=== PATIENT | male | born 1980 | race Caucasian/White ===

== ENCOUNTER 2019-03-06 05:38 | Day surgery (SDC) | payer MEDICAID, SELFPAY ==
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
[2019-03-06] VITALS (9 sets, daily range): BP systolic 100–119; BP diastolic 57–74; PULSE 74–100; RESP 16–18; TEMP 36.1–36.6; O2SAT 95–100; BMI 22.1
--- NOTE | 2019-03-06 07:15 | HERN_PTH ---
PATIENT: JASWANT ABDUL LOC: [facility] U#:[id number] AGE/SX: 38/M ROOM: RE03/06/[address]: Dr. Alvarado Rodriguez MD : 1980 BED: DIS: 03/06/2019 SPEC #: [id number] RECD: 03/06/19 15:03 STATUS: NOLAN GRAY #: [id number] PAT: 03/06/19 07:[address]: Alvarado Rodriguez DEPT: SURGICAL PATHOLOGY RECD BY: Shiva Srivastava ENTERED: 03/07/19 08:04 SP TYPE: Hernia OTHR DR: No Primary Care Phys Tissues: HERNIA Procedures: Surgery Specimen Level II HEADER OPERATION: Right inguinal hernia with mesh PRE-OP DIAGNOSIS: Right inguinal hernia TISSUE SUBMITTED: Hernia sac and lipoma of cord MICROSCOPIC DIAGNOSIS Hernia sac and lipoma of cord: Mesothelium-lined fibroadipose tissue consistent with hernia sac. Mature adipose tissue, compatible with cord lipoma. CE:demetrio 03/08/19 MICROSCOPIC DESCRIPTION Slides are reviewed. GROSS DESCRIPTION Received in fixative is one container labeled with the patient's name and designated hernia sac and lipoma of cord. The specimen consists of an irregular fragment of saccular dupree tissue measuring 3.8 x 2 x 1 cm and consistent with hernia sac. This fragment is sectioned and submitted in its entirety in cassette 1. Also present in the specimen container is an irregular fragment of yellow fatty tissue measuring 8.5 x 4.5 x 1.3 cm. Serial sections reveal homogenous yellow cut surfaces without areas of cyst formation, necrosis or myxoid change. This fragment is consistent with lipoma of cord. Lpn Or Medical Assistant sections from this fragment is submitted in cassette 2. / AM:demetrio 03/07/19 TC:1 CPT: 60596
--- NOTE | 2019-03-06 07:16 | DCINST_ITS ---
Discharge Diet: Light diet - advance as tolerated Discharge Activity: Return to Normal Activity, May Drive - when you are no longer taking narcotic pain medications., May Shower - with the bandage in place 1-2 days after surgery. Lifting Restrictions: 20 pounds for 8 weeks. Additional Activity Instructions:: Climbing stairs is fine, walking is encouraged. Sitting in bed may be uncomfortable. Sitting up using your lateral muscles (sitting up sideways) is usually more comfortable. Do not drive, work heavy equipment of sign legal documents for 24 hours. If your hernia repair was an ingunial repair, you may have scrotal swelling, an ice pack and/or athletic support can provide more comfort. Pain medications may cause nausea, you should typically eat light foods as you take your pain medications. Pain medications may also cause constipation. If you have difficulty with this, discuss with your doctor. Call your doctor if your incision/area has: Continuous Slow Oozing, Sudden Increased Bleeding, Increased Pain/ Swelling, Increased Redness, Foul Smelling Discharge Call your doctor if you observe: Fever of 101 or Higher Suture Line Care: Avoid Pulling/Pushing, Avoid Pinching/Bending Additional Dressing/Incision Instructions:: Leave the operative bandage on for 2-3 days. When you remove the bandage, leave the steri-strips on place until your follow up appointment or they fall off. Allergies/Adverse Reactions: Allergies acetaminophen [From Vicodin] Adverse Reaction (Verified 03/01/19 10:52) Nausea/Vom/Diarrhea codeine Adverse Reaction (Verified 03/01/19 10:52) Nausea/Vom/Diarrhea hydrocodone [From Vicodin] Adverse Reaction (Verified 03/01/19 10:52) Nausea/Vom/Diarrhea Medications to take at Discharge Cetirizine HCl [Zyrtec] 10 mg PO PRN PRN 03/01/19 Primary Care Physician: Care Physician,No Primary [Primary Care Provider] - Test Results: Test results from this visit will be discussed in further detail at your follow- up appointment, if applicable. Please Follow Up With: Alvarado Rodriguez MD - [phone] When: Plan to have a follow up appointment in 7 days. Call to schedule.
[2019-03-06] MEDS: Cefazolin 2 GM in 0.9% Normal Saline 100 ML IV (07:18)
[2019-03-06] MEDS: Bupivacaine Mpf 0.5% 30 ML VIAL (08:25)
--- NOTE | 2019-03-06 08:31 | PCM.OPRPT ---
Report of Operation Date of Procedure: 03/06/19 Pre-Operative Diagnosis: right inguinal hernia repair Post-Operative Diagnosis: indirect right inguinal hernia Surgery/Procedure Performed:: open right inguinal hernia repair with mesh heavy equipment technician: Tracy Quintero Type of Anesthesia:: Local MAC Anesthesiologist: Jose Alfredo Cisneros - ASA2 Specimen's removed: hernia sac and cord lipoma Estimated Blood Loss (mL): 5 Fluids Replaced: 600 Description of Procedure: The patient was brought to the operating suite. Sign in was performed verifying patient, site, procedure, position, and DVT prophylaxis with SCDs. Patient received 2 g Ancef antibiotic prophylaxis. Following induction of IV sedation, the patient?s right inguinal region was prepped and draped in the usual fashion. Timeout was performed verifying patient, site, position. Local anesthetic was injected at the site of the anterior superior iliac spine for a regional block. The 50-50 mixture of lidocaine and Marcaine was then injected along the planned course of the skin incision. A linear incision was made and dissection carried down to the external oblique aponeurosis. Traversing veins ligated with 3-0 Vicryl ties and divided. Local anesthetic was then injected into the inguinal canal. A clean scalpel blade was used to open the lower canal in the direction of the fibers and a Metzenbaum scissor was used to further dissect and open the canal. Care was taken to avoid injury to the ilioinguinal nerve. Following this, the spermatic cord was surrounded at the level of the pubic tubercle and brought up in the operative field with a [place] drain. Dissection was continued up to the internal ring clearing the cremasteric fibers. The patient was noted to have an indirect inguinal hernia. Dissection of the cord was undertaken which demonstrated no additional direct inguinal hernia. the hernia sac was dissected off the cord. The hernia sac was opened and was no sliding component. High ligation of the cord was performed. A small mesh plug was then placed into the internal ring and secured with interrupted 0 Prolene sutures. Onlay mesh was secured using a Bard keyhole shaped mesh secured at the level of the pubic tubercle and run to the ilioinguinal ligament inferiorly using an 0 Prolene suture. Next an 0 Prolene suture was used to secure the mesh to the transversus arch. The tails of the mesh were placed around the spermatic cord to create a new internal ring and the tails closed with a running 0 Prolene suture. The spermatic cord and the ilioinguinal nerve returned to its anatomic position. The external oblique was closed with a running 3-0 Vicryl suture. Subcutaneous fat was closed with interrupted 3-0 Vicryl suture. Skin was closed with a running 4-0 Monocryl subcuticular sutures. Steri-Strips and bandages were applied. The patient was brought to recovery room in stable condition. Grafts/Implants Used: Bard perfix plug Ref [id number] Lot [id number] exp - 11/15/27 - Admit VTE Documentation VTE Present on Admission: No VTE Mechan Device Prophylaxis: SCD's VTE Pharm Prophylaxis ordered?: No
--- NOTE | 2019-03-06 08:35 | OP.PCM_ITS ---
Report of Operation Date of Procedure: 03/06/19 Pre-Operative Diagnosis: right inguinal hernia repair Post-Operative Diagnosis: indirect right inguinal hernia Surgery/Procedure Performed:: open right inguinal hernia repair with mesh manager project management: Tracy Quintero Type of Anesthesia:: Local MAC Anesthesiologist: Jose Alfredo Cisneros - ASA2 Specimen's removed: hernia sac and cord lipoma Estimated Blood Loss (mL): 5 Fluids Replaced: 600 Description of Procedure: The patient was brought to the operating suite. Sign in was performed verifying patient, site, procedure, position, and DVT prophylaxis with SCDs. Patient received 2 g Ancef antibiotic prophylaxis. Following induction of IV sedation, the patient?s right inguinal region was prepped and draped in the usual fashion. Timeout was performed verifying patient, site, position. Local anesthetic was injected at the site of the anterior superior iliac spine for a regional block. The 50-50 mixture of lidocaine and Marcaine was then injected along the planned course of the skin incision. A linear incision was made and dissection carried down to the external oblique aponeurosis. Traversing veins ligated with 3-0 Vicryl ties and divided. Local anesthetic was then injected into the inguinal canal. A clean scalpel blade was used to open the lower canal in the direction of the fibers and a Metzenbaum scissor was used to further dissect and open the canal. Care was taken to avoid injury to the ilioinguinal nerve. Following this, the spermatic cord was surrounded at the level of the pubic tubercle and brought up in the operative field with a [place] drain. Dissection was continued up to the internal ring clearing the cremasteric fibers. The patient was noted to have an indirect inguinal hernia. Dissection of the cord was undertaken which demonstrated no additional direct inguinal hernia. the hernia sac was dissected off the cord. The hernia sac was opened and was no sliding component. High ligation of the cord was performed. A small mesh plug was then placed into the internal ring and secured with interrupted 0 Prolene s utures. Onlay mesh was secured using a Bard keyhole shaped mesh secured at the level of the pubic tubercle and run to the ilioinguinal ligament inferiorly using an 0 Prolene suture. Next an 0 Prolene suture was used to secure the mesh to the transversus arch. The tails of the mesh were placed around the spermatic cord to create a new internal ring and the tails closed with a running 0 Prolene suture. The spermatic cord and the ilioinguinal nerve returned to its anatomic position. The external oblique was closed with a running 3-0 Vicryl suture. Subcutaneous fat was closed with interrupted 3-0 Vicryl suture. Skin was closed with a running 4-0 Monocryl subcuticular sutures. Steri-Strips and bandages were applied. The patient was brought to recovery room in stable condition. Grafts/Implants Used: Bard perfix plug Ref [id number] Lot [id number] exp - 11/15/27 - Admit VTE Documentation VTE Present on Admission: No VTE Mechan Device Prophylaxis: SCD's VTE Pharm Prophylaxis ordered?: No
== END 2019-03-06 12:49 | disposition home or self-care (01) ==
LOC: SDC 05:41 → AC 05:42
PROVIDERS: Referring Provider Surgery; Visit Provider Surgery
PROC: (CPT 49505; principal; 2019-03-06 07:00)
DX: K40.90 Unilateral inguinal hernia, without obstruction or gangrene, not specified as recurrent (principal)
CPT/HCPCS: 49505; 88302; J7120; C1781; J2405

== ENCOUNTER 2019-06-09 11:42 | Emergency (ER) | payer MEDICAID, SELFPAY ==
[2019-03-06 06:15] VITALS: BMI 22.1
[2019-06-09 11:43] VITALS: BP 139/71; PULSE 99; RESP 17; TEMP 36.6; O2SAT 98; BMI 21.1
--- NOTE | 2019-06-09 12:39 | ED.VISSUMM ---
- ER Visit Summary Date of Service: 06/09/19 Chief Complaint: Dental infection History of Present Illness: The patient is a 39 M who states that he has poor dentition. He states that yesterday began to have some discomfort on the left lower premolar teeth. It got worse during the night and now he has swelling along the left lower lip and the left mandible. Physical Examination: Afebrile vital signs stable Left lower first and second premolar shows swelling along the gumline. There is however no focal drainable abscess. He has swelling of left lower lip in the left mandible with some mild erythema of the skin. There is focal decay. No trismus. Floor the mouth is soft. Emergency Department Course and Treatment: Patient will need to follow-up with dentistry as soon as possible. We will place him on oxycodone Motrin and penicillin. Return if worsening or concerns Impression: 1. Dental abscess This note was generated with [employer] dictation software. It may contain incorrect words, spelling, and punctuation that were not noted in review of the chart prior to signing ED Disposition - Plan for ED Patient: Disposition: Home or Assisted Living Instructions: Dental Abscess Prescriptions: Ibuprofen [Motrin] 800 mg PO TID PRN PRN #20 tab PRN Reason: Pain Transmission Status: Pending to [facility] [address] Penicillin V Potassium 500 mg PO 4X/DAY #40 tab Transmission Status: Pending to [facility] Oxycodone HCl/Acetaminophen [Percocet 5/325] 1 tablet PO Q6H PRN PRN 3 Days #12 tablet PRN Reason: Pain Transmission Status: Received by [facility] [address] Additional Instructions: Your prescriptions have been sent to [facility] pharmacy here in [place] electronically. Follow-up with dentist as soon as possible
[2019-06-09 12:53] VITALS: RESP 18
== END 2019-06-09 12:54 | disposition home or self-care (01) ==
LOC: ED 12:46
PROVIDERS: Emergency Provider Emergency Medicine; Family Provider Internal Medicine; PCP Internal Medicine
DX: K04.7 Periapical abscess without sinus (principal)
CPT/HCPCS: 99282